=== PATIENT | female | born 1995 | race Caucasian/White ===

== ENCOUNTER 2025-09-05 16:44 | Emergency (ER) | payer MEDICAID ==
[~2025-09-05] VITALS: Ht 162.6 cm; Wt 55.0 kg
[2025-09-05 16:48] VITALS: O2SAT 99
[2025-09-05 17:41] LABS: CLARITY URINE TURBID (CLEAR); COLOR URINE YELLOW (YELLOW); GLUCOSE URINE NEGATIVE (NEGATIVE); KETONES URINE NEGATIVE (NEGATIVE); LEUKOCYTE ESTERASE URINE 3+ (NEGATIVE); NITRITE URINE NEGATIVE (NEGATIVE); OCCULT BLOOD URINE NEGATIVE (NEGATIVE); PH URINE 8.5 (4.5-8.0); PROTEIN URINE TRACE (NEGATIVE); SPECIFIC GRAVITY URINE 1.026 (1.005-1.030); UROBILINOGEN URINE 1.0 E.U./dL (0.2-1.0)
[2025-09-05 17:48] LABS: *AMPHETAMINES SCREEN URINE NEGATIVE (NEGATIVE); *BARBITURATES SCREEN URINE NEGATIVE (NEGATIVE); *BENZODIAZEPINES SCREEN URINE NEGATIVE (NEGATIVE); *COCAINE SCREEN URINE NEGATIVE (NEGATIVE); METHADONE URINE SCREEN NEGATIVE (NEGATIVE)
[2025-09-05 17:49] LABS: CANNABINOID URINE SCREEN NEGATIVE (NEGATIVE); ECSTASY MDMA SCREEN URINE NEGATIVE (NEGATIVE); OPIATES URINE SCREEN NEGATIVE (NEGATIVE); PHENCYCLIDINE URINE SCREEN NEGATIVE (NEGATIVE)
[2025-09-05 17:52] LABS: BACTERIA URINE 2+; RBC URINE 0-2 /hpf (0-2); SQUAMOUS EPITHELIAL CELL URINE 1+ /lpf (RARE/1+); TRICHOMONAS URINE 1+
[2025-09-05 20:25] LABS: BASOPHILS % 0.3 % (0.0-2.0); EOSINOPHILS % 0.4 % (0.0-5.0); HEMATOCRIT. 31.8 % (36.0-48.0); HEMOGLOBIN. 10.8 g/dL (12.0-16.0); LYMPHOCYTES % 48.9 % (20.0-50.0); MEAN PLATELET VOLUME 8.6 fl (7.4-10.4); MONOCYTES % 8.7 % (2.0-8.0); NEUTROPHILS % 41.7 % (40.0-76.0); PLATELET 119 x1000/uL (130-400); RED BLOOD CELL COUNT 3.79 mill/uL (4.2-5.4); RED CELL DISTRIBUTION WIDTH 14.5 % (11.6-14.6)
[2025-09-05] MEDS: CEPHALEXIN 250MG CAPSULE PO ONE (20:43)
[2025-09-05] MEDS: METRONIDAZOLE 500MG TABLET PO ONE (20:43)
[2025-09-05 20:51] LABS: HCG SCREEN NEGATIVE
[2025-09-05 20:54] LABS: CREATININE 0.7 mg/dL (0.6-1.0); UREA NITROGEN BLOOD 16 mg/dL (9-23)
[2025-09-05 20:56] LABS: ASPARTATE AMINOTRANSFERASE 26 IU/L (<34); BILIRUBIN DIRECT < 0.1 mg/dL (<=3.0); BILIRUBIN TOTAL 0.3 mg/dL (0.1-1.0); PROTEIN TOTAL 6.6 g/dL (6.0-8.3)
[2025-09-06] MEDS ORDERED: DIPHENHYDRAMINE 50MG CAPSULE PO ONE (01:15)
[2025-09-06] MEDS: DIPHENHYDRAMINE 25MG CAPSULE PO NR (01:21)
[2025-09-06 01:37] VITALS: TEMP 36.7
[2025-09-06 10:02] VITALS: BP 103/65; PULSE 60; RESP 16; O2SAT 98
== END 2025-09-06 10:05 ==
LOC: ER 16:44
DX: R45.851 Suicidal ideations (principal); Z79.899 Other long term (current) drug therapy; Z20.822 Contact with and (suspected) exposure to COVID-19
CPT/HCPCS: 80076; 80305; 80048; 81003; 80307; 80329; 80320; 84703; 83735; 85025; 36415; 93005; 99285; 87426; Q0163; G0480